=== PATIENT | male | born 1960 | race Two or more races ===

== ENCOUNTER 2023-05-04 11:20 | Emergency (ER) | payer OTHER ==
[~2023-05-04] VITALS: Ht 170.2 cm; Wt 98.5 kg
[2023-05-04 13:15] VITALS: BP 167/108; PULSE 60; RESP 18; TEMP 98.1; O2SAT 96
[2023-05-04] MEDS ORDERED: IBUP-1456 PO (13:21)
== END 2023-05-04 13:26 | disposition home or self-care (01) ==
LOC: ER 11:20
DX: S46.912A Strain of unspecified muscle, fascia and tendon at shoulder and upper arm level, left arm, initial encounter (principal); E78.5 Hyperlipidemia, unspecified; Z88.0 Allergy status to penicillin; W18.39XA Other fall on same level, initial encounter; Y93.89 Activity, other specified; Y92.89 Other specified places as the place of occurrence of the external cause; Y99.8 Other external cause status
CPT/HCPCS: 73030

== ENCOUNTER 2024-05-21 18:36 | Emergency (ER) | payer OTHER ==
[~2024-05-21] VITALS: Ht 170.2 cm; Wt 105.4 kg
[~2024-05-21 18:36] MED LIST: IBUP-1456 PO
[2024-05-21 18:48] VITALS: BP 154/98; PULSE 70; RESP 17; TEMP 97.8; O2SAT 98
[2024-05-21] MEDS ORDERED: IBUP-1456 PO (21:31)
== END 2024-05-21 21:39 | disposition home or self-care (01) ==
LOC: ER 18:36
DX: S63.591A Other specified sprain of right wrist, initial encounter (principal); Z79.899 Other long term (current) drug therapy; Z88.0 Allergy status to penicillin; W01.0XXA Fall on same level from slipping, tripping and stumbling without subsequent striking against object, initial encounter; Y93.E1 Activity, personal bathing and showering; Y92.89 Other specified places as the place of occurrence of the external cause; Y99.8 Other external cause status
CPT/HCPCS: 73030; 73110